=== PATIENT | female | born 1965 ===

== ENCOUNTER 2020-11-23 12:30 | Inpatient (IN) | payer OTHER ==
[~2020-11-23] VITALS: Ht 154.9 cm; Wt 73.9 kg
[2020-11-23] MEDS ORDERED: COZAAR50 MG PO (17:11)
[2020-11-25] MEDS ORDERED: ESTRADIOL1 EAC6 (07:57)
== END 2020-11-26 18:44 | disposition home or self-care (01) | DRG 743 ==
LOC: OB/GYN 11-25 05:48 → O/R 11-25 05:48 → OB/GYN 11-25 10:10
PROVIDERS: ADMIT Specialist; ATTEND Specialist
PROC: 0UT54ZZ Resection of Right Fallopian Tube, Percutaneous Endoscopic Approach (ICD-10-PCS; 2020-11-25)
PROC: 0UB14ZZ Excision of Left Ovary, Percutaneous Endoscopic Approach (ICD-10-PCS; 2020-11-25)
PROC: 0DNW4ZZ Release Peritoneum, Percutaneous Endoscopic Approach (ICD-10-PCS; 2020-11-25)
PROC: 0TN74ZZ Release Left Ureter, Percutaneous Endoscopic Approach (ICD-10-PCS; 2020-11-25)
PROC: 0TN64ZZ Release Right Ureter, Percutaneous Endoscopic Approach (ICD-10-PCS; 2020-11-25)
PROC: 0UT04ZZ Resection of Right Ovary, Percutaneous Endoscopic Approach (ICD-10-PCS; principal; 2020-11-25 08:01)
DX: N80.1 Endometriosis of ovary (principal); N83.8 Other noninflammatory disorders of ovary, fallopian tube and broad ligament; N99.4 Postprocedural pelvic peritoneal adhesions; N73.6 Female pelvic peritoneal adhesions (postinfective); I10 Essential (primary) hypertension; R19.00 Intra-abdominal and pelvic swelling, mass and lump, unspecified site